=== PATIENT | male | born 1960 | race Caucasian/White ===

== ENCOUNTER 2017-01-14 20:33 | Emergency (ER) | payer MEDICARE, OTHER ==
[~2017-01-14] VITALS: Ht 190.5 cm; Wt 107.0 kg
[~2017-01-14 20:33] MED LIST: ACETAMINOPHEN; BENA20TA2; BUTA-247; CYCL-343; HYDR-3652; HYDR-3658; HYDROCODONE; LORA1TAB; TRAM50TA2
--- NOTE | 2017-01-14 22:00 | NUR ---
PT BIB FAMILY C/O "STOMACH AND BACK PAIN" 04/02. DIFFUSE ABD PAIN. DENIES TRAUMA/EXERTION. DENIES N/V/D. REPORTS NO BM SINCE THIS AM "I THINK I'M CONSTIPATED". NAD NOTED. RESP EVEN UNLABORED. SKIN WARM NONDIAPHORETIC. PT LYING ON HIS SIDE, CONVERSATIONAL, DOES NOT APPEAR IN SEVERE PAIN. IN ER BED 11.
[2017-01-14] MEDS ORDERED: HYDROMORPHONE 1 MG/1 ML DISP.SYRIN ONE (22:08)
[2017-01-14] MEDS ORDERED: IV SET PRIMARY 1 EA INFUS.SET MC ONE (22:09)
[2017-01-14] MEDS ORDERED: ONDANSETRON HCL/PF 4 MG/2 ML VIAL ONE (22:09)
[2017-01-14] MEDS ORDERED: IV NS 0.9% 1,000 ML ONE (22:09)
--- NOTE | 2017-01-14 22:15 | NUR ---
PT AMBULATED TO RESTROOM WITH STEADY GAIT.
[2017-01-14] MEDS ORDERED: ONDANSETRON HCL/PF 4 MG/2 ML VIAL IVP ONE (22:30)
[2017-01-14] MEDS ORDERED: IV NS 0.9% 1,000 ML BAG IV ONE (22:30)
[2017-01-14] MEDS ORDERED: HYDROMORPHONE 1 MG/1 ML DISP.SYRIN IV ONE (22:30)
--- NOTE | 2017-01-14 22:47 | NUR ---
PT RETURNED FROM CT IN STABLE CONDITION
[2017-01-14 23:02] LABS: APPEARANCE,URINE CLEAR (CLEAR); BILIRUBIN,URINE NEGATIVE (NEGATIVE); BLOOD, URINE 1+ Ery/uL (NEGATIVE); COLOR,URINE YELLOW (YELLOW); KETONES,URINE NEGATIVE (NEGATIVE); LEUKOCYTE ESTERASE ,URINE NEGATIVE (NEGATIVE); NITRITE, URINE NEGATIVE (NEGATIVE); PH,URINE 5.5 (5.0-8.0); PROTEIN,URINE NEGATIVE (NEGATIVE); UGLUCOSE NEGATIVE (NEGATIVE); UROBILINOGEN,URINE 0.2 EU/dL (0.2)
[2017-01-14 23:04] LABS: BASOPHILS % (AUTO) 0.2 % (0.0-2.0); EOSINOPHILS % (AUTO) 0.2 % (0.0-6.0); HEMATOCRIT 46 % (39-51); HEMOGLOBIN 15.4 g/dL (13.5-17.5); LYMPHOCYTES # (AUTO) 1.1 /CMM (0.8-4.8); LYMPHOCYTES % (AUTO) 10.3 % (20.0-44.0); MEAN CORPUSCULAR HEMOGLOBIN 31 PG (26.0-33.0); MEAN CORPUSCULAR HGB CONC 34 g/dl (31.0-36.0); MEAN CORPUSCULAR VOLUME 91 fL (80-96); MONOCYTES # (AUTO) 0.1 /CMM (0.1-1.30); MONOCYTES % (AUTO) 1.3 % (2.0-12.0); NEUTROPHILS # (AUTO) 9.3 /CMM (1.8-8.9); PLATELET COUNT (AUTO) 212 /CMM (150-450); RDW COEFFICIENT OF VARIATION 12.5 (11.5-15.0); RED BLOOD CELL COUNT(AUTO) 5.04 MIL/uL (4.5-6.0); WHITE BLOOD COUNT (AUTO) 10.6 K/uL (4.3-11.0)
[2017-01-14 23:08] LABS: ADD URINE CULTURE NO; BACTERIA,URINE None seen /HPF (None Seen); SQUAMOUS EPITHELIAL CELL,UR Rare /HPF (None Seen); WBC,URINE 0-2 /HPF (0-3)
[2017-01-14 23:15] LABS: CALCIUM, SERUM 8.9 mg/dL (8.5-10.1); CREATININE 1.6 mg/dL (0.6-1.3); INR 0.96 (0.87-1.13); POTASSIUM 4.6 mmol/L (3.5-5.1); PROTHROMBIN TIME 10.3 SECS (9.5-12.7)
[2017-01-14 23:19] LABS: ALBUMIN 3.9 g/dL (3.4-5.0); BILIRUBIN,DIRECT 0.1 mg/dL (0.0-0.2); BILIRUBIN,TOTAL 0.4 mg/dL (0.2-1.0); TOTAL PROTEIN, SERUM 7.9 g/dL (6.4-8.2)
--- NOTE | 2017-01-15 00:29 | NUR ---
CALLED RADIOLOGY TO F/U ON CT RESULTS
--- NOTE | 2017-01-15 00:44 | NUR ---
REPORT GIVEN TO OSMAN DUARTE RN FOR HENRY
--- NOTE | 2017-01-15 01:34 | NUR ---
Patient discharged to home in stable condition. Written and verbal after care instructions given. Patient verbalizes understanding of instruction. IV removed. Catheter intact and site benign. Pressure and 4x4 applied to site. No bleeding noted. Ambulatory with a steady gait accompanied by family.
[2017-01-15 01:36] VITALS: BP 144/85
== END 2017-01-15 01:37 | disposition home or self-care (01) ==
LOC: ER 20:36
DX: N12 Tubulo-interstitial nephritis, not specified as acute or chronic (principal); N13.2 Hydronephrosis with renal and ureteral calculous obstruction; N23 Unspecified renal colic; N28.9 Disorder of kidney and ureter, unspecified; Z98.890 Other specified postprocedural states
CPT/HCPCS: 36415; 74176; 80048; 80076; 81001; 83690; 85025; 85730; 96361; 96374; 96375; 99285; A4606; J1170; J2405; J7030; 81000-TC; Z7610

== ENCOUNTER 2017-01-26 20:13 | Emergency (ER) | payer MEDICARE, OTHER ==
[~2017-01-26] VITALS: Ht 193 cm; Wt 81.6 kg
[2017-01-26 21:01] VITALS: BP 126/81
== END 2017-01-26 21:48 | disposition home or self-care (01) ==
LOC: ER 20:13
DX: B34.9 Viral infection, unspecified (principal); G89.29 Other chronic pain; M54.9 Dorsalgia, unspecified; Z85.841 Personal history of malignant neoplasm of brain; Z98.890 Other specified postprocedural states
CPT/HCPCS: 99282; A4606; Z7610

== ENCOUNTER 2017-03-01 18:21 | Emergency (ER) | payer MEDICARE, OTHER ==
[~2017-03-01] VITALS: Ht 190.5 cm; Wt 100.2 kg
[2017-03-01 18:30] VITALS: BP 142/84
[2017-03-01] MEDS ORDERED: KETOROLAC TROMETHAMINE INJ 30 MG/ML VIAL IM ONE (19:30)
[2017-03-01] MEDS ORDERED: KETOROLAC TROMETHAMINE INJ 30 MG/ML VIAL ONE (19:49)
== END 2017-03-01 19:59 | disposition home or self-care (01) ==
LOC: ER 18:22
DX: M54.5 Low back pain (principal); Z98.890 Other specified postprocedural states
CPT/HCPCS: 96372; 99283; A4606; J1885; Z7610

== ENCOUNTER 2017-09-17 16:30 | Emergency (ER) | payer MEDICARE, OTHER ==
[~2017-09-17] VITALS: Ht 190.5 cm; Wt 99.8 kg
[~2017-09-17 16:30] MED LIST changes: -CYCL-343; +CYCL10TA9
--- NOTE | 2017-09-17 16:39 | NUR ---
PT CALLED TO TRIAGE, PT IN COURTYARD AND REQUESTS TO FINISH [employer]
[2017-09-17 16:54] VITALS: BP 138/87
[2017-09-17] MEDS ORDERED: DEXAMETHASONE SOD PHOSPHATE 10 MG/ML VIAL ONE (17:24)
[2017-09-17] MEDS ORDERED: DEXAMETHASONE SOD PHOSPHATE 10 MG/ML VIAL MC ONE (17:30)
== END 2017-09-17 17:26 | disposition home or self-care (01) ==
LOC: ER 16:31
DX: L50.9 Urticaria, unspecified (principal); G89.29 Other chronic pain; Z98.890 Other specified postprocedural states
CPT/HCPCS: A4606; J1100; Z7610

== ENCOUNTER 2017-09-28 12:06 | Emergency (ER) | payer MEDICARE, OTHER ==
[~2017-09-28] VITALS: Ht 190.5 cm; Wt 99.8 kg
[~2017-09-28 12:06] MED LIST changes: -HYDR-3652; -HYDR-3658; +HYDR-3972; +HYDR-3980
--- NOTE | 2017-09-28 12:18 | NUR ---
AAOX3, CAME TO ER C/O BODYACHES, CHILLS X YESTERDAY. RR IS EVEN AND UNLABORED WITH NAD NOTED. SKIN IS WARM AND DRY. DR CEDENO AT BS FOR EVAL.
[2017-09-28 12:51] LABS: BASOPHILS # (AUTO) 0.1 /CMM (0.0-0.2); BASOPHILS % (AUTO) 1.3 % (0.0-2.0); EOSINOPHILS # (AUTO) 0.1 /CMM (0.0-0.7); EOSINOPHILS % (AUTO) 2.9 % (0.0-6.0); HEMATOCRIT 46 % (39-51); HEMOGLOBIN 15.9 g/dL (13.5-17.5); LYMPHOCYTES # (AUTO) 1.8 /CMM (0.8-4.8); LYMPHOCYTES % (AUTO) 40.4 % (20.0-44.0); MEAN CORPUSCULAR HEMOGLOBIN 31 PG (26.0-33.0); MEAN CORPUSCULAR HGB CONC 34 g/dl (31.0-36.0); MEAN CORPUSCULAR VOLUME 90 fL (80-96); MONOCYTES # (AUTO) 0.9 /CMM (0.1-1.30); MONOCYTES % (AUTO) 18.9 % (2.0-12.0); NEUTROPHILS # (AUTO) 1.7 /CMM (1.8-8.9); NEUTROPHILS % (AUTO) 36.5 % (43.0-81.0); PLATELET COUNT (AUTO) 205 /CMM (150-450); RDW COEFFICIENT OF VARIATION 12.3 (11.5-15.0); RED BLOOD CELL COUNT(AUTO) 5.15 MIL/uL (4.5-6.0); WHITE BLOOD COUNT (AUTO) 4.6 K/uL (4.3-11.0)
[2017-09-28 12:52] LABS: APPEARANCE,URINE Slightly Cloudy (CLEAR); BILIRUBIN,URINE SMALL (NEGATIVE); BLOOD, URINE Trace-intact Ery/uL (NEGATIVE); KETONES,URINE Trace (NEGATIVE); LEUKOCYTE ESTERASE ,URINE Negative (NEGATIVE); NITRITE, URINE Negative (NEGATIVE); PROTEIN,URINE Trace mg/dl (NEGATIVE); UGLUCOSE Negative (NEGATIVE)
[2017-09-28 12:55] LABS: COLOR,URINE Dark Yellow (YELLOW)
[2017-09-28 13:03] LABS: CARBON DIOXIDE 29 mmol/L (21-32); CHLORIDE 104 mmol/L (98-107); CREATININE 1.3 mg/dL (0.6-1.3); GLUCOSE 112 mg/dL (74-106); POTASSIUM 3.9 mmol/L (3.5-5.1); SODIUM SERUM 139 mmol/L (136-145); UREA NITROGEN, BLOOD 13 mg/dL (7-18)
[2017-09-28 13:05] LABS: INR 0.96 (0.85-1.15)
[2017-09-28 13:07] LABS: ALANINE AMINOTRANSFERASE 25 U/L (12-78); ALBUMIN 3.5 g/dL (3.4-5.0); ALKALINE PHOSPHATASE 83 U/L (46-116); ASPARTATE AMINOTRANSFERASE 19 U/L (15-37); BILIRUBIN,DIRECT 0.2 mg/dL (0.0-0.2); BILIRUBIN,TOTAL 0.7 mg/dL (0.2-1.0); TOTAL PROTEIN, SERUM 8.4 g/dL (6.4-8.2)
[2017-09-28 13:09] LABS: BACTERIA,URINE None seen /HPF (None Seen); MUCUS,URINE Few /LPF (None Seen); SQUAMOUS EPITHELIAL CELL,UR Few /HPF (None Seen); WBC,URINE 0-3 /HPF (0-3)
[2017-09-28 13:15] LABS: TROPONIN I < 0.017 ng/mL (0.00-0.056)
--- NOTE | 2017-09-28 13:45 | NUR ---
IV removed. Catheter intact and site benign. Pressure and 4x4 applied to site. No bleeding noted.
--- NOTE | 2017-09-28 13:54 | NUR ---
Patient discharged to home in stable condition. Written and verbal after care instructions given. Patient verbalizes understanding of instruction.
[2017-09-28 13:57] VITALS: BP 114/66
== END 2017-09-28 13:59 | disposition home or self-care (01) ==
LOC: ER 12:12
DX: J11.1 Influenza due to unidentified influenza virus with other respiratory manifestations (principal); G89.29 Other chronic pain; Z98.890 Other specified postprocedural states
CPT/HCPCS: 36415; 71045-TC; 80048-TC; 80076-TC; 81000-TC; 83605-TC; 84484-TC; 85025-TC; 85730-TC; 87040-TC; 87086-TC; A4606; Z7610

== ENCOUNTER 2017-10-14 11:10 | Emergency (ER) | payer MEDICARE, OTHER ==
[~2017-10-14] VITALS: Ht 190.5 cm; Wt 100.7 kg
[2017-10-14 11:20] VITALS: BP 153/75
[2017-10-14] MEDS ORDERED: IBUPROFEN 600 MG TABLET PO ONE (12:31)
[2017-10-14] MEDS: IBUPROFEN 600 MG TABLET PO ONE (12:36)
== END 2017-10-14 13:26 | disposition home or self-care (01) ==
LOC: ER 11:11
DX: B34.9 Viral infection, unspecified (principal); G89.29 Other chronic pain; M54.9 Dorsalgia, unspecified; Z98.890 Other specified postprocedural states
CPT/HCPCS: 71045-TC; A4606; Z7610

== ENCOUNTER 2018-10-03 11:17 | Emergency (ER) | payer MEDICARE, OTHER ==
[~2018-10-03] VITALS: Ht 193 cm; Wt 99.8 kg
[~2018-10-03 11:17] MED LIST changes: -BENA20TA2; +BENA20TA9
[2018-10-03 11:25] VITALS: BP 145/94
== END 2018-10-03 11:40 | disposition home or self-care (01) ==
LOC: ER 11:17
DX: H10.33 Unspecified acute conjunctivitis, bilateral (principal); G89.29 Other chronic pain; Z98.890 Other specified postprocedural states; Z85.841 Personal history of malignant neoplasm of brain; Z79.899 Other long term (current) drug therapy
CPT/HCPCS: 99283; A4606

== ENCOUNTER 2021-05-04 09:23 | Emergency (ER) | payer MEDICARE, OTHER ==
[~2021-05-04] VITALS: Ht 188 cm; Wt 97.5 kg
[2021-05-04 09:23] VITALS: BP 127/86
--- NOTE | 2021-05-04 09:36 | NUR ---
AT BEDSIDE FOR EVAL.
== END 2021-05-04 09:46 | disposition home or self-care (01) ==
LOC: ER 09:25
DX: Z00.8 Encounter for other general examination (principal); G89.29 Other chronic pain; Z98.890 Other specified postprocedural states; Z79.899 Other long term (current) drug therapy

== ENCOUNTER 2022-03-01 09:29 | Emergency (ER) | payer MEDICARE, OTHER ==
[~2022-03-01] VITALS: Ht 190.5 cm; Wt 94.8 kg
--- NOTE | 2022-03-01 09:40 | NUR ---
61 YRS MALE WALKING C/O BACK PAIN FOR 3 DAY AWKE AND ALERT WAKING WITH STASY GATE NO WEEKNEES NO HX TRAMA
[2022-03-01] MEDS ORDERED: CYCLOBENZAPRINE 10 MG TABLET ONE (09:59)
[2022-03-01] MEDS ORDERED: KETOROLAC TROMETHAMINE INJ 30 MG/ML VIAL ONE (09:59)
[2022-03-01] MEDS ORDERED: CYCLOBENZAPRINE 10 MG TABLET PO ONE (10:00)
[2022-03-01] MEDS ORDERED: KETOROLAC TROMETHAMINE INJ 60 MG/2 ML VIAL IM ONE (10:00)
--- NOTE | 2022-03-01 11:00 | NUR ---
TO ct scan of back
--- NOTE | 2022-03-01 11:30 | NUR ---
Back pain contoled no pain at this time
[2022-03-01] MEDS ORDERED: IBUP-1957 PO (11:50)
[2022-03-01] MEDS ORDERED: CYCL5TAB PO (11:50)
[2022-03-01 12:00] VITALS: BP 127/78
--- NOTE | 2022-03-01 12:06 | NUR ---
D/Cinstraction and fallaw up care given to lpt fully and verblized understood d/c with stable condion dineses back pain
== END 2022-03-01 12:25 | disposition home or self-care (01) ==
LOC: ER 09:37
DX: M54.6 Pain in thoracic spine (principal); G89.29 Other chronic pain; Z86.69 Personal history of other diseases of the nervous system and sense organs; Z79.899 Other long term (current) drug therapy
CPT/HCPCS: 99284; 71250; 96372; J1885

== ENCOUNTER 2022-07-03 21:47 | Emergency (ER) | payer MEDICARE, OTHER ==
[~2022-07-03] VITALS: Ht 193 cm; Wt 95.7 kg
[~2022-07-03 21:47] MED LIST changes: +CYCL5TAB PO; +IBUP-1957 PO
[2022-07-03 21:56] VITALS: BP 150/85
== END 2022-07-04 00:03 | disposition home or self-care (01) ==
LOC: ER 21:49
DX: M25.512 Pain in left shoulder (principal); G89.29 Other chronic pain; Z79.899 Other long term (current) drug therapy
CPT/HCPCS: 73030-TC

== ENCOUNTER 2022-07-23 19:59 | Emergency (ER) | payer MEDICARE, OTHER ==
[~2022-07-23] VITALS: Ht 193 cm; Wt 97.5 kg
[2022-07-23 20:53] VITALS: BP 143/70
[2022-07-23] MEDS ORDERED: NAPR-1009 PO (21:25)
[2022-07-23] MEDS ORDERED: KETOROLAC TROMETHAMINE INJ 30 MG/ML VIAL IM ONE (21:30)
== END 2022-07-23 21:38 | disposition home or self-care (01) ==
LOC: ER 20:35
DX: M25.512 Pain in left shoulder (principal); M24.512 Contracture, left shoulder; G89.29 Other chronic pain